=== PATIENT | male | born 1975 | race American Indian/Alaskan Native ===

== ENCOUNTER 2021-02-19 22:03 | Emergency (ER) | payer SELFPAY ==
[2021-02-19 23:05] VITALS: BP 166/93
[2021-02-20] MEDS ORDERED: IBUPROFEN 800 MG TAB PO ONE (01:41)
[2021-02-20] MEDS ORDERED: ACETAMINOPHEN 500 MG TAB PO ONE (01:41)
--- NOTE | 2021-02-20 01:46 | Emergency Department Report ---
ED General Adult HPI - General Chief complaint: Dental/Oral Stated complaint: TOOTH PAIN Time Seen by Provider: 02/20/21 00:41 Source: patient Mode of arrival: Ambulatory Limitations: No Limitations - History of Present Illness Initial comments: 45-year-old male patient presents to the emergency department with complaints of dental pain starting last night. No preceding fall, trauma, or injury. Patient does not have a history of recurrent dental issues. Patient has been taking Motrin with limited relief. Patient has a dentist and plans to call when the office opens later today. Denies fever, chills, dysphagia, hoarseness, jaw swelling. Denies all other complaints at this time. - Related Data Previous Rx's Medication Instructions Recorded Last Taken Type Naproxen 500 mg PO BID #20 tablet 02/20/21 Unknown Rx Penicillin Vk [Veetids TAB] 500 mg PO QID 7 Days tablet 02/20/21 Unknown Rx ED Review of Systems ROS: Stated complaint: TOOTH PAIN Other details as noted in HPI Other: GENERAL: Negative for fever. ENT: Positive for dental pain. CARDIOVASCULAR: Negative for chest pain. PULMONARY: Negative for shortness of breath. GASTROINTESTINAL: Negative for abdominal pain. MUSCULOSKELETAL: Negative for back pain. NEUROLOGICAL: Negative for headache. INTEGUMENTARY: Negative for rash. ED Past Medical Hx - Past Medical History Previous Medical History?: No - Surgical History Past Surgical History?: No - Medications Home Medications: Home Medications Medication Instructions Recorded Confirmed Last Taken Type Naproxen 500 mg PO BID #20 tablet 02/20/21 Unknown Rx Penicillin Vk [Veetids TAB] 500 mg PO QID 7 Days tablet 02/20/21 Unknown Rx ED Physical Exam - General Limitations: No Limitations - Other Other exam information: General: Awake, appropriately interactive, no acute distress. Dental: Oral mucosa is moist. The gingiva appear normal. No fluctuance or evidence of periapical abscess. Sublingual, submental, and submandibular spaces all soft, without edema. No evidence for maxillary or buccal space abscess. No trismus. Patient is speaking in full sentences and handling secretions without difficulty. Tenderness to palpation along the left lower molar, posterior aspect of the dental socket is slightly exposed with minimal bleeding. Neck: Supple. Full range of motion intact. Cardiovascular: Normal peripheral perfusion. Pulmonary: No respiratory distress. Patient is speaking normally without use of accessory muscles. Skin: No apparent rashes or lesions. Neurological: No facial asymmetry. Speech is clear. Follows commands. Patient is alert and oriented. Musculoskeletal: Moves all four extremities spontaneously with normal range of motion. Psych: Cooperative. Appropriate mood and affect. ED Course Vital Signs 02/19/21 23:03 Temperature 98.0 F Pulse Rate 61 Respiratory 16 Rate Blood Pressure 166/93 O2 Sat by Pulse 99 Oximetry ED Medical Decision Making - Medical Decision Making Differential diagnosis including but not limited to: dental abscess, Candido's angina, necrotizing gingivitis, dental caries Patient presents to the emergency department with complaints of dental pain starting last night. He is afebrile, hemodynamically stable, no hypoxia, no respiratory distress, speaking and handling secretions without difficulty. No clinical evidence to suggest airway obstruction or systemic bacterial illness warranting further diagnostic work-up on an emergent basis at this time. Patient will be discharged home with appropriate analgesics, prophylactic antibiotics, and referred to dentist for close outpatient follow-up in case his dentist is not able to see him promptly. Patient expressed understanding and is agreeable to plan of care. Dietary modifications discussed. Strict return precautions provided. History, exam, diagnostic testing, and current condition do not suggest worrisome pathology to warrant further testing, continued ED treatment, admission, or surgical evaluation at this point. Given the low probability of a significant medical illness, it would be more likely to result in harm than benefit to perform further testing at this stage. Discussed findings, presumptive diagnosis, need for follow-up and specific signs/symptoms that should prompt immediate return to the emergency department. Instructions were explained in detail to the patient in addition to giving written discharge information. Patient expressed understanding and was given the opportunity to ask questions, all of which were satisfactorily answered prior to discharge home. Critical care attestation.: If time is entered above; I have spent that time in minutes in the direct care of this critically ill patient, excluding procedure time. ED Disposition Clinical Impression: Odontalgia Disposition: 01 HOME / SELF CARE / HOMELESS Is pt being admited?: No Does the pt Need Aspirin: No Condition: Stable Instructions: Diet and Dental Disease Additional Instructions: Take Tylenol every 4 hours as needed for pain. Take Naprosyn twice daily with food as needed for pain. Take Penicillin with food as directed. Increase your dietary intake of probiotic rich foods while taking this medication. Use dental wax to create a barrier between the affected tooth and the outside environment. Avoid extremely hot/extremely cold foods and fluids which may worsen your pain. Follow-up with dentist this week. Call today to schedule an appointment. See referral information below. Return to the emergency department immediately for new or worsening symptoms. Prescriptions: Naproxen 500 mg PO BID #20 tablet Penicillin Vk [Veetids TAB] 500 mg PO QID 7 Days tablet Referrals: [facility] [Outside] - 3-5 Days [facility] [Outside] - 3-5 Days Time of Disposition: 01:48
== END 2021-02-20 02:05 | disposition home or self-care (01) ==
LOC: ED 22:03
DX: K08.89 Other specified disorders of teeth and supporting structures (principal); Z79.899 Other long term (current) drug therapy
CPT/HCPCS: 99282